=== PATIENT | male | born 1965 | race Caucasian/White ===

== ENCOUNTER 2018-02-15 08:53 | Outpatient (CLI) | payer OTHER | END 2018-02-15 08:54 | disposition home or self-care (01) | LOC: BICULT 08:53 | PROVIDERS: ATTEND Family Medicine | DX: M79.604 Pain in right leg (principal); I82.431 Acute embolism and thrombosis of right popliteal vein; I82.401 Acute embolism and thrombosis of unspecified deep veins of right lower extremity | CPT/HCPCS: 36415; 81240; 81241; 83090; 85240; 85300; 85303; 85305; 85307; 85379; 85598; 85610; 85730; 86147 ==

== ENCOUNTER 2018-07-26 09:28 | Outpatient (CLI) | payer OTHER ==
--- NOTE | 2018-07-26 10:16 | RAD ---
RIGHT HAND THREE VIEWS: History: Right hand pain status post trauma. FINDINGS: There is an obliquely oriented essentially nondisplaced mid shaft fourth metacarpal fracture. There a re some arthritic changes of the distal interphalangeal joints. There are post-operative changes of t he wrist with a screw placement related to an old scaphoid injury. There is marked radiocarpal joint space narrowing. IMPRESSION: Fourth metacarpal fracture. POS: [facility]
== END 2018-07-26 09:29 | disposition home or self-care (01) ==
LOC: BICRAD 09:28
PROVIDERS: ATTEND Family Medicine
DX: M79.641 Pain in right hand (principal); S62.304A Unspecified fracture of fourth metacarpal bone, right hand, initial encounter for closed fracture